=== PATIENT | female | born 1950 | race Caucasian/White ===

== ENCOUNTER → 2017-11-24 | Outpatient (CLI) | payer MEDICARE | END | disposition home or self-care (01) | LOC: RAH 09:03 | PROVIDERS: ATTEND Internal Medicine | DX: Z12.31 Encounter for screening mammogram for malignant neoplasm of breast (principal) | CPT/HCPCS: 77067 ==

== ENCOUNTER → 2017-12-16 | Outpatient (CLI) | payer MEDICARE | END | disposition home or self-care (01) | LOC: RAH 12:43 | PROVIDERS: ATTEND Internal Medicine | DX: R59.1 Generalized enlarged lymph nodes (principal) | CPT/HCPCS: 76882 ==

== ENCOUNTER → 2017-12-20 | Outpatient (CLI) | payer MEDICARE ==
[~2017-12-20] MED LIST: ROPIVACAINE 0.5% 5MG/ML 30ML IJ ONE
== END | disposition home or self-care (01) ==
LOC: RAH 08:29
PROVIDERS: ATTEND Internal Medicine
DX: R59.1 Generalized enlarged lymph nodes (principal)
CPT/HCPCS: 71046

== ENCOUNTER → 2017-12-27 | Outpatient (CLI) | payer MEDICARE ==
[~2017-12-27] MED LIST changes: +IOPAMIDOL-370 100 ML VIAL IV ONE; -ROPIVACAINE 0.5% 5MG/ML 30ML IJ ONE
== END | disposition home or self-care (01) ==
LOC: RAH 12:50
PROVIDERS: ATTEND Internal Medicine
DX: M50.323 Other cervical disc degeneration at C6-C7 level (principal)
CPT/HCPCS: 70491; 71260; Q9967

== ENCOUNTER → 2021-03-14 | Outpatient (CLI) | payer OTHER | END | disposition home or self-care (01) | LOC: RAH 08:04 | PROVIDERS: ATTEND Internal Medicine | DX: Z12.31 Encounter for screening mammogram for malignant neoplasm of breast (principal); Z00.01 Encounter for general adult medical examination with abnormal findings | CPT/HCPCS: 77067 ==

== ENCOUNTER → 2022-11-19 | Outpatient (CLI) | payer OTHER | END | disposition home or self-care (01) | LOC: RAH 15:02 | PROVIDERS: ATTEND Internal Medicine | DX: Z12.31 Encounter for screening mammogram for malignant neoplasm of breast (principal) | CPT/HCPCS: 77067 ==

== ENCOUNTER → 2023-09-15 | Outpatient (CLI) | payer OTHER | END | disposition home or self-care (01) | LOC: RAH 15:02 | PROVIDERS: ATTEND Internal Medicine | DX: M25.512 Pain in left shoulder (principal) | CPT/HCPCS: 73030 ==

== ENCOUNTER → 2023-12-13 | Outpatient (CLI) | payer OTHER | END | disposition home or self-care (01) | LOC: RAH 12:54 | PROVIDERS: ATTEND Nurse Practitioner | DX: M75.122 Complete rotator cuff tear or rupture of left shoulder, not specified as traumatic (principal); M19.012 Primary osteoarthritis, left shoulder | CPT/HCPCS: 73221 ==

== ENCOUNTER → 2024-10-23 | Outpatient (CLI) | payer OTHER ==
--- NOTE | 2024-10-23 15:03 | HMCIMG ---
US ARTERIAL UNILA LOW EXT DUPL HISTORY: Disorder of arteries COMPARISON: None TECHNIQUE: Left lower extremity arterial Doppler ultrasound study was performed. FINDINGS: Abnormal monophasic arterial waveforms are seen in the left posterior tibial and anterior tibial arteries. No flow is seen in the left dorsalis pedal artery. Normal triphasic arterial waveforms are noted in the left common femoral, deep femoral, superficial femoral, and popliteal arteries. On the left, the peak systolic velocity of the common femoral artery is 124 cm/s, the proximal femoral artery is 82 cm/s, the mid femoral artery is 87 cm/s, the distal femoral artery is 133 cm/s, the proximal popliteal artery is 37 cm/s, the distal popliteal artery is 34 cm/s, the anterior tibial artery is 28 cm/s, the posterior tibial artery artery is 15 cm/s,and the dorsalis pedal artery is 0 cm/s. IMPRESSION: 1. Atherosclerotic disease. 2. Abnormal monophasic arterial waveforms are seen in the left posterior tibial and anterior tibial arteries.
== END | disposition home or self-care (01) ==
LOC: RAH 14:08
PROVIDERS: ATTEND Internal Medicine
DX: I70.202 Unspecified atherosclerosis of native arteries of extremities, left leg (principal); I77.89 Other specified disorders of arteries and arterioles
CPT/HCPCS: 93926

== ENCOUNTER → 2024-11-14 | Outpatient (CLI) | payer OTHER ==
[~2024-11-14] MED LIST changes: +ACET-2079 PO; +APIX5TAB PO; +CEPH500T PO; +CLOP-31 PO; +GABA-529 PO; +HYDR-4379 PO; -IOPAMIDOL-370 100 ML VIAL IV ONE
== END | disposition home or self-care (01) ==
LOC: WHH 08:00
PROVIDERS: ATTEND Family Medicine
DX: I73.9 Peripheral vascular disease, unspecified (principal); I74.3 Embolism and thrombosis of arteries of the lower extremities; M62.262 Nontraumatic ischemic infarction of muscle, left lower leg; L97.522 Non-pressure chronic ulcer of other part of left foot with fat layer exposed; S91.302A Unspecified open wound, left foot, initial encounter; G62.9 Polyneuropathy, unspecified; L03.116 Cellulitis of left lower limb; E87.1 Hypo-osmolality and hyponatremia; E46 Unspecified protein-calorie malnutrition; F17.210 Nicotine dependence, cigarettes, uncomplicated; Z79.01 Long term (current) use of anticoagulants; Z68.21 Body mass index [BMI] 21.0-21.9, adult; Z79.899 Other long term (current) drug therapy; X58.XXXA Exposure to other specified factors, initial encounter; Y93.89 Activity, other specified; Y92.89 Other specified places as the place of occurrence of the external cause; Y99.8 Other external cause status
CPT/HCPCS: G0277

== ENCOUNTER → 2024-11-15 | Outpatient (CLI) | payer OTHER | END | disposition home or self-care (01) | LOC: WHH 08:08 | PROVIDERS: ATTEND Podiatrist Foot & Ankle Surgery | DX: I70.245 Atherosclerosis of native arteries of left leg with ulceration of other part of foot (principal); I74.3 Embolism and thrombosis of arteries of the lower extremities; L97.522 Non-pressure chronic ulcer of other part of left foot with fat layer exposed; M62.262 Nontraumatic ischemic infarction of muscle, left lower leg; S91.302D Unspecified open wound, left foot, subsequent encounter; I96 Gangrene, not elsewhere classified; E87.1 Hypo-osmolality and hyponatremia; I10 Essential (primary) hypertension; G62.9 Polyneuropathy, unspecified; F17.210 Nicotine dependence, cigarettes, uncomplicated; Z79.01 Long term (current) use of anticoagulants; Z79.899 Other long term (current) drug therapy; Z86.011 Personal history of benign neoplasm of the brain; Z79.02 Long term (current) use of antithrombotics/antiplatelets; X58.XXXD Exposure to other specified factors, subsequent encounter | CPT/HCPCS: G0277 ==

== ENCOUNTER → 2024-11-16 | Outpatient (CLI) | payer OTHER | END | disposition home or self-care (01) | LOC: WHH 07:39 | PROVIDERS: ATTEND Family Medicine | DX: I70.245 Atherosclerosis of native arteries of left leg with ulceration of other part of foot (principal); I74.3 Embolism and thrombosis of arteries of the lower extremities; L97.522 Non-pressure chronic ulcer of other part of left foot with fat layer exposed; M62.262 Nontraumatic ischemic infarction of muscle, left lower leg; S91.302D Unspecified open wound, left foot, subsequent encounter; I96 Gangrene, not elsewhere classified; E87.1 Hypo-osmolality and hyponatremia; I10 Essential (primary) hypertension; G62.9 Polyneuropathy, unspecified; F17.210 Nicotine dependence, cigarettes, uncomplicated; Z79.01 Long term (current) use of anticoagulants; Z79.899 Other long term (current) drug therapy; Z86.011 Personal history of benign neoplasm of the brain; Z79.02 Long term (current) use of antithrombotics/antiplatelets; X58.XXXD Exposure to other specified factors, subsequent encounter | CPT/HCPCS: G0277 ==

== ENCOUNTER → 2024-11-17 | Outpatient (CLI) | payer OTHER | END | disposition home or self-care (01) | LOC: WHH 08:01 | PROVIDERS: ATTEND Family Medicine | DX: I70.245 Atherosclerosis of native arteries of left leg with ulceration of other part of foot (principal); L97.522 Non-pressure chronic ulcer of other part of left foot with fat layer exposed; I74.3 Embolism and thrombosis of arteries of the lower extremities; M62.262 Nontraumatic ischemic infarction of muscle, left lower leg; S91.302D Unspecified open wound, left foot, subsequent encounter; I96 Gangrene, not elsewhere classified; E87.1 Hypo-osmolality and hyponatremia; I10 Essential (primary) hypertension; G62.9 Polyneuropathy, unspecified; F17.210 Nicotine dependence, cigarettes, uncomplicated; Z68.21 Body mass index [BMI] 21.0-21.9, adult; Z86.011 Personal history of benign neoplasm of the brain; Z79.01 Long term (current) use of anticoagulants; Z79.899 Other long term (current) drug therapy; Z79.02 Long term (current) use of antithrombotics/antiplatelets; X58.XXXD Exposure to other specified factors, subsequent encounter | CPT/HCPCS: G0277 ==

== ENCOUNTER → 2024-11-20 | Outpatient (CLI) | payer OTHER | END | disposition home or self-care (01) | LOC: WHH 07:55 | PROVIDERS: ATTEND Family Medicine | DX: I70.245 Atherosclerosis of native arteries of left leg with ulceration of other part of foot (principal); L97.522 Non-pressure chronic ulcer of other part of left foot with fat layer exposed; I74.3 Embolism and thrombosis of arteries of the lower extremities; M62.262 Nontraumatic ischemic infarction of muscle, left lower leg; S91.302D Unspecified open wound, left foot, subsequent encounter; I96 Gangrene, not elsewhere classified; G62.9 Polyneuropathy, unspecified; E87.1 Hypo-osmolality and hyponatremia; F17.210 Nicotine dependence, cigarettes, uncomplicated; Z79.01 Long term (current) use of anticoagulants; Z79.899 Other long term (current) drug therapy; X58.XXXD Exposure to other specified factors, subsequent encounter | CPT/HCPCS: G0277 ==

== ENCOUNTER → 2024-11-21 | Outpatient (CLI) | payer OTHER | END | disposition home or self-care (01) | LOC: WHH 07:58 | PROVIDERS: ATTEND Family Medicine | DX: I70.245 Atherosclerosis of native arteries of left leg with ulceration of other part of foot (principal); L97.522 Non-pressure chronic ulcer of other part of left foot with fat layer exposed; M62.262 Nontraumatic ischemic infarction of muscle, left lower leg; S91.302D Unspecified open wound, left foot, subsequent encounter; I96 Gangrene, not elsewhere classified; I74.3 Embolism and thrombosis of arteries of the lower extremities; E87.1 Hypo-osmolality and hyponatremia; I10 Essential (primary) hypertension; G62.9 Polyneuropathy, unspecified; F17.210 Nicotine dependence, cigarettes, uncomplicated; Z79.01 Long term (current) use of anticoagulants; Z79.899 Other long term (current) drug therapy; Z86.011 Personal history of benign neoplasm of the brain; Z79.02 Long term (current) use of antithrombotics/antiplatelets; X58.XXXD Exposure to other specified factors, subsequent encounter | CPT/HCPCS: G0277 ==

== ENCOUNTER → 2024-11-22 | Outpatient (CLI) | payer OTHER | END | disposition home or self-care (01) | LOC: WHH 08:27 | PROVIDERS: ATTEND Podiatrist Foot & Ankle Surgery | DX: I73.9 Peripheral vascular disease, unspecified (principal); M62.262 Nontraumatic ischemic infarction of muscle, left lower leg; I74.3 Embolism and thrombosis of arteries of the lower extremities; S91.302D Unspecified open wound, left foot, subsequent encounter; L97.522 Non-pressure chronic ulcer of other part of left foot with fat layer exposed; E87.1 Hypo-osmolality and hyponatremia; I10 Essential (primary) hypertension; G62.9 Polyneuropathy, unspecified; E46 Unspecified protein-calorie malnutrition; F17.210 Nicotine dependence, cigarettes, uncomplicated; Z79.01 Long term (current) use of anticoagulants; Z68.21 Body mass index [BMI] 21.0-21.9, adult; Z79.899 Other long term (current) drug therapy; Z86.011 Personal history of benign neoplasm of the brain; Z79.02 Long term (current) use of antithrombotics/antiplatelets; X58.XXXD Exposure to other specified factors, subsequent encounter | CPT/HCPCS: G0277 ==

== ENCOUNTER → 2024-11-23 | Outpatient (CLI) | payer OTHER | END | disposition home or self-care (01) | LOC: WHH 08:05 | PROVIDERS: ATTEND Family Medicine | DX: I73.9 Peripheral vascular disease, unspecified (principal); I74.3 Embolism and thrombosis of arteries of the lower extremities; L97.522 Non-pressure chronic ulcer of other part of left foot with fat layer exposed; M62.262 Nontraumatic ischemic infarction of muscle, left lower leg; S91.302D Unspecified open wound, left foot, subsequent encounter; E87.1 Hypo-osmolality and hyponatremia; I10 Essential (primary) hypertension; G62.9 Polyneuropathy, unspecified; E46 Unspecified protein-calorie malnutrition; F17.210 Nicotine dependence, cigarettes, uncomplicated; Z79.01 Long term (current) use of anticoagulants; Z68.21 Body mass index [BMI] 21.0-21.9, adult; Z79.899 Other long term (current) drug therapy; Z86.011 Personal history of benign neoplasm of the brain; Z79.02 Long term (current) use of antithrombotics/antiplatelets; X58.XXXD Exposure to other specified factors, subsequent encounter | CPT/HCPCS: G0277 ==

== ENCOUNTER → 2024-11-24 | Outpatient (CLI) | payer OTHER | END | disposition home or self-care (01) | LOC: WHH 08:11 | PROVIDERS: ATTEND Family Medicine | DX: I70.245 Atherosclerosis of native arteries of left leg with ulceration of other part of foot (principal); L97.522 Non-pressure chronic ulcer of other part of left foot with fat layer exposed; M62.262 Nontraumatic ischemic infarction of muscle, left lower leg; S91.302D Unspecified open wound, left foot, subsequent encounter; I96 Gangrene, not elsewhere classified; I74.3 Embolism and thrombosis of arteries of the lower extremities; G62.9 Polyneuropathy, unspecified; E87.1 Hypo-osmolality and hyponatremia; F17.210 Nicotine dependence, cigarettes, uncomplicated; Z79.01 Long term (current) use of anticoagulants; Z79.899 Other long term (current) drug therapy; X58.XXXD Exposure to other specified factors, subsequent encounter | CPT/HCPCS: G0277 ==

== ENCOUNTER → 2024-11-27 | Outpatient (CLI) | payer OTHER | END | disposition home or self-care (01) | LOC: WHH 08:07 | PROVIDERS: ATTEND Family Medicine | DX: I70.245 Atherosclerosis of native arteries of left leg with ulceration of other part of foot (principal); L97.522 Non-pressure chronic ulcer of other part of left foot with fat layer exposed; M62.262 Nontraumatic ischemic infarction of muscle, left lower leg; S91.302D Unspecified open wound, left foot, subsequent encounter; I96 Gangrene, not elsewhere classified; E87.1 Hypo-osmolality and hyponatremia; I10 Essential (primary) hypertension; G62.9 Polyneuropathy, unspecified; F17.210 Nicotine dependence, cigarettes, uncomplicated; Z79.01 Long term (current) use of anticoagulants; Z79.899 Other long term (current) drug therapy; Z86.011 Personal history of benign neoplasm of the brain; Z79.02 Long term (current) use of antithrombotics/antiplatelets; X58.XXXD Exposure to other specified factors, subsequent encounter | CPT/HCPCS: G0277 ==

== ENCOUNTER → 2024-11-28 | Outpatient (CLI) | payer OTHER | END | disposition home or self-care (01) | LOC: WHH 07:56 | PROVIDERS: ATTEND Family Medicine | DX: I73.9 Peripheral vascular disease, unspecified (principal); I74.3 Embolism and thrombosis of arteries of the lower extremities; L97.522 Non-pressure chronic ulcer of other part of left foot with fat layer exposed; M62.262 Nontraumatic ischemic infarction of muscle, left lower leg; M62.272 Nontraumatic ischemic infarction of muscle, left ankle and foot; S91.302D Unspecified open wound, left foot, subsequent encounter; E87.1 Hypo-osmolality and hyponatremia; I10 Essential (primary) hypertension; G62.9 Polyneuropathy, unspecified; E46 Unspecified protein-calorie malnutrition; F17.210 Nicotine dependence, cigarettes, uncomplicated; Z79.01 Long term (current) use of anticoagulants; Z68.21 Body mass index [BMI] 21.0-21.9, adult; Z79.899 Other long term (current) drug therapy; Z86.011 Personal history of benign neoplasm of the brain; Z79.02 Long term (current) use of antithrombotics/antiplatelets; X58.XXXD Exposure to other specified factors, subsequent encounter | CPT/HCPCS: G0277 ==

== ENCOUNTER → 2024-12-20 | Outpatient (CLI) | payer OTHER ==
[~2024-12-20] MED LIST changes: -ACET-2079 PO; -CEPH500T PO; +LIDOCAINE HCL 4% LTA SOL 4 ML VIAL TP ONE
== END | disposition home or self-care (01) ==
LOC: WHH 08:25
PROVIDERS: ATTEND Podiatrist Foot & Ankle Surgery
DX: E11.621 Type 2 diabetes mellitus with foot ulcer (principal); I70.245 Atherosclerosis of native arteries of left leg with ulceration of other part of foot; L97.522 Non-pressure chronic ulcer of other part of left foot with fat layer exposed; M62.262 Nontraumatic ischemic infarction of muscle, left lower leg; S91.302D Unspecified open wound, left foot, subsequent encounter; I74.3 Embolism and thrombosis of arteries of the lower extremities; I48.91 Unspecified atrial fibrillation; I96 Gangrene, not elsewhere classified; G62.9 Polyneuropathy, unspecified; I10 Essential (primary) hypertension; E87.1 Hypo-osmolality and hyponatremia; F17.210 Nicotine dependence, cigarettes, uncomplicated; Z79.01 Long term (current) use of anticoagulants; Z79.899 Other long term (current) drug therapy; Z86.011 Personal history of benign neoplasm of the brain; Z79.02 Long term (current) use of antithrombotics/antiplatelets; X58.XXXD Exposure to other specified factors, subsequent encounter
CPT/HCPCS: 97597; 97598

== ENCOUNTER → 2024-12-27 | Outpatient (CLI) | payer OTHER ==
[~2024-12-27] MED LIST changes: -LIDOCAINE HCL 4% LTA SOL 4 ML VIAL TP ONE
== END | disposition home or self-care (01) ==
LOC: WHH 08:11
PROVIDERS: ATTEND Podiatrist Foot & Ankle Surgery
DX: I70.245 Atherosclerosis of native arteries of left leg with ulceration of other part of foot (principal); L97.522 Non-pressure chronic ulcer of other part of left foot with fat layer exposed; M62.262 Nontraumatic ischemic infarction of muscle, left lower leg; S91.302D Unspecified open wound, left foot, subsequent encounter; I48.91 Unspecified atrial fibrillation; I96 Gangrene, not elsewhere classified; G62.9 Polyneuropathy, unspecified; I10 Essential (primary) hypertension; I74.3 Embolism and thrombosis of arteries of the lower extremities; E87.1 Hypo-osmolality and hyponatremia; F17.210 Nicotine dependence, cigarettes, uncomplicated; Z79.01 Long term (current) use of anticoagulants; Z79.899 Other long term (current) drug therapy; Z86.011 Personal history of benign neoplasm of the brain; Z79.02 Long term (current) use of antithrombotics/antiplatelets; X58.XXXD Exposure to other specified factors, subsequent encounter
CPT/HCPCS: G0463

== ENCOUNTER → 2025-01-03 | Outpatient (CLI) | payer OTHER ==
[~2025-01-03] MED LIST changes: +LIDOCAINE HCL 4% LTA SOL 4 ML VIAL TP ONE
== END | disposition home or self-care (01) ==
LOC: WHH 09:01
PROVIDERS: ATTEND Podiatrist Foot & Ankle Surgery
DX: I70.245 Atherosclerosis of native arteries of left leg with ulceration of other part of foot (principal); L97.522 Non-pressure chronic ulcer of other part of left foot with fat layer exposed; M62.262 Nontraumatic ischemic infarction of muscle, left lower leg; S91.302D Unspecified open wound, left foot, subsequent encounter; I48.91 Unspecified atrial fibrillation; I96 Gangrene, not elsewhere classified; I10 Essential (primary) hypertension; G62.9 Polyneuropathy, unspecified; I74.3 Embolism and thrombosis of arteries of the lower extremities; E87.1 Hypo-osmolality and hyponatremia; F17.210 Nicotine dependence, cigarettes, uncomplicated; Z79.01 Long term (current) use of anticoagulants; Z79.899 Other long term (current) drug therapy; Z86.011 Personal history of benign neoplasm of the brain; Z79.02 Long term (current) use of antithrombotics/antiplatelets; X58.XXXD Exposure to other specified factors, subsequent encounter
CPT/HCPCS: 11042; 11045; A6010; A4450

== ENCOUNTER → 2025-01-10 | Outpatient (CLI) | payer OTHER | END | disposition home or self-care (01) | LOC: WHH 08:44 | PROVIDERS: ATTEND Podiatrist Foot & Ankle Surgery | DX: I70.245 Atherosclerosis of native arteries of left leg with ulceration of other part of foot (principal); L97.522 Non-pressure chronic ulcer of other part of left foot with fat layer exposed; M62.262 Nontraumatic ischemic infarction of muscle, left lower leg; S91.302D Unspecified open wound, left foot, subsequent encounter; I48.91 Unspecified atrial fibrillation; I96 Gangrene, not elsewhere classified; G62.9 Polyneuropathy, unspecified; I10 Essential (primary) hypertension; I74.3 Embolism and thrombosis of arteries of the lower extremities; E87.1 Hypo-osmolality and hyponatremia; F17.210 Nicotine dependence, cigarettes, uncomplicated; Z79.01 Long term (current) use of anticoagulants; Z79.899 Other long term (current) drug therapy; Z86.011 Personal history of benign neoplasm of the brain; Z79.02 Long term (current) use of antithrombotics/antiplatelets; X58.XXXD Exposure to other specified factors, subsequent encounter | CPT/HCPCS: G0463; A6010 ==

== ENCOUNTER → 2025-01-17 | Outpatient (CLI) | payer OTHER | END | disposition home or self-care (01) | LOC: WHH 08:52 | PROVIDERS: ATTEND Podiatrist Foot & Ankle Surgery | DX: I70.245 Atherosclerosis of native arteries of left leg with ulceration of other part of foot (principal); L97.523 Non-pressure chronic ulcer of other part of left foot with necrosis of muscle; S91.302D Unspecified open wound, left foot, subsequent encounter; I48.91 Unspecified atrial fibrillation; I96 Gangrene, not elsewhere classified; G62.9 Polyneuropathy, unspecified; I10 Essential (primary) hypertension; E87.1 Hypo-osmolality and hyponatremia; I74.3 Embolism and thrombosis of arteries of the lower extremities; M62.262 Nontraumatic ischemic infarction of muscle, left lower leg; F17.210 Nicotine dependence, cigarettes, uncomplicated; Z79.01 Long term (current) use of anticoagulants; Z79.899 Other long term (current) drug therapy; Z86.011 Personal history of benign neoplasm of the brain; Z79.02 Long term (current) use of antithrombotics/antiplatelets; X58.XXXD Exposure to other specified factors, subsequent encounter | CPT/HCPCS: 11042; 11045; A6010 ==

== ENCOUNTER → 2025-01-31 | Outpatient (CLI) | payer OTHER ==
[~2025-01-31] MED LIST changes: +FIDA200T PO; -HYDR-4379 PO; +ONDA-243 PO
== END | disposition home or self-care (01) ==
LOC: WHH 09:06
PROVIDERS: ATTEND Podiatrist Foot & Ankle Surgery
DX: I70.245 Atherosclerosis of native arteries of left leg with ulceration of other part of foot (principal); L97.523 Non-pressure chronic ulcer of other part of left foot with necrosis of muscle; S91.302D Unspecified open wound, left foot, subsequent encounter; I48.91 Unspecified atrial fibrillation; I96 Gangrene, not elsewhere classified; G62.9 Polyneuropathy, unspecified; I10 Essential (primary) hypertension; E87.1 Hypo-osmolality and hyponatremia; I74.3 Embolism and thrombosis of arteries of the lower extremities; M62.262 Nontraumatic ischemic infarction of muscle, left lower leg; F17.210 Nicotine dependence, cigarettes, uncomplicated; Z79.01 Long term (current) use of anticoagulants; Z79.899 Other long term (current) drug therapy; Z86.011 Personal history of benign neoplasm of the brain; Z79.02 Long term (current) use of antithrombotics/antiplatelets; X58.XXXD Exposure to other specified factors, subsequent encounter
CPT/HCPCS: 11042; 11045; A6010

== ENCOUNTER → 2025-02-07 | Outpatient (CLI) | payer OTHER | END | disposition home or self-care (01) | LOC: WHH 09:01 | PROVIDERS: ATTEND Podiatrist Foot & Ankle Surgery | DX: I70.245 Atherosclerosis of native arteries of left leg with ulceration of other part of foot (principal); L97.523 Non-pressure chronic ulcer of other part of left foot with necrosis of muscle; S91.302D Unspecified open wound, left foot, subsequent encounter; I48.91 Unspecified atrial fibrillation; I96 Gangrene, not elsewhere classified; G62.9 Polyneuropathy, unspecified; I10 Essential (primary) hypertension; E87.1 Hypo-osmolality and hyponatremia; I74.3 Embolism and thrombosis of arteries of the lower extremities; M62.262 Nontraumatic ischemic infarction of muscle, left lower leg; F17.210 Nicotine dependence, cigarettes, uncomplicated; Z79.01 Long term (current) use of anticoagulants; Z79.899 Other long term (current) drug therapy; Z86.011 Personal history of benign neoplasm of the brain; Z79.02 Long term (current) use of antithrombotics/antiplatelets; X58.XXXD Exposure to other specified factors, subsequent encounter | CPT/HCPCS: 11042; 11045; A4450 ==

== ENCOUNTER → 2025-02-12 | Outpatient (CLI) | payer OTHER ==
[~2025-02-12] MED LIST changes: -LIDOCAINE HCL 4% LTA SOL 4 ML VIAL TP ONE
== END | disposition home or self-care (01) ==
LOC: WHH 10:18
PROVIDERS: ATTEND Podiatrist Foot & Ankle Surgery
DX: I70.245 Atherosclerosis of native arteries of left leg with ulceration of other part of foot (principal); L97.522 Non-pressure chronic ulcer of other part of left foot with fat layer exposed; S91.302D Unspecified open wound, left foot, subsequent encounter; I74.3 Embolism and thrombosis of arteries of the lower extremities; I48.91 Unspecified atrial fibrillation; I96 Gangrene, not elsewhere classified; G62.9 Polyneuropathy, unspecified; I10 Essential (primary) hypertension; E87.1 Hypo-osmolality and hyponatremia; M62.262 Nontraumatic ischemic infarction of muscle, left lower leg; F17.210 Nicotine dependence, cigarettes, uncomplicated; Z79.01 Long term (current) use of anticoagulants; Z79.899 Other long term (current) drug therapy; Z86.011 Personal history of benign neoplasm of the brain; Z79.02 Long term (current) use of antithrombotics/antiplatelets; X58.XXXD Exposure to other specified factors, subsequent encounter
CPT/HCPCS: 87070; G0463

== ENCOUNTER → 2025-02-14 | Outpatient (CLI) | payer OTHER ==
[~2025-02-14] MED LIST changes: +LIDOCAINE HCL 4% LTA SOL 4 ML VIAL TP ONE
== END | disposition home or self-care (01) ==
LOC: WHH 08:55
PROVIDERS: ATTEND Podiatrist Foot & Ankle Surgery
DX: I70.245 Atherosclerosis of native arteries of left leg with ulceration of other part of foot (principal); L97.526 Non-pressure chronic ulcer of other part of left foot with bone involvement without evidence of necrosis; S91.302D Unspecified open wound, left foot, subsequent encounter; I48.91 Unspecified atrial fibrillation; I96 Gangrene, not elsewhere classified; G62.9 Polyneuropathy, unspecified; I10 Essential (primary) hypertension; E87.1 Hypo-osmolality and hyponatremia; I74.3 Embolism and thrombosis of arteries of the lower extremities; M62.262 Nontraumatic ischemic infarction of muscle, left lower leg; F17.210 Nicotine dependence, cigarettes, uncomplicated; Z79.01 Long term (current) use of anticoagulants; Z79.899 Other long term (current) drug therapy; Z86.011 Personal history of benign neoplasm of the brain; Z79.02 Long term (current) use of antithrombotics/antiplatelets; X58.XXXD Exposure to other specified factors, subsequent encounter
CPT/HCPCS: 11042; 11045

== ENCOUNTER → 2025-02-28 | Outpatient (CLI) | payer OTHER | END | disposition home or self-care (01) | LOC: WHH 09:01 | PROVIDERS: ATTEND Podiatrist Foot & Ankle Surgery | DX: I70.245 Atherosclerosis of native arteries of left leg with ulceration of other part of foot (principal); L97.526 Non-pressure chronic ulcer of other part of left foot with bone involvement without evidence of necrosis; S91.302D Unspecified open wound, left foot, subsequent encounter; I48.91 Unspecified atrial fibrillation; I96 Gangrene, not elsewhere classified; G62.9 Polyneuropathy, unspecified; I10 Essential (primary) hypertension; E87.1 Hypo-osmolality and hyponatremia; I74.3 Embolism and thrombosis of arteries of the lower extremities; M62.262 Nontraumatic ischemic infarction of muscle, left lower leg; F17.210 Nicotine dependence, cigarettes, uncomplicated; Z79.01 Long term (current) use of anticoagulants; Z79.899 Other long term (current) drug therapy; Z86.011 Personal history of benign neoplasm of the brain; Z79.02 Long term (current) use of antithrombotics/antiplatelets; X58.XXXD Exposure to other specified factors, subsequent encounter | CPT/HCPCS: 11042; 11045; A6022 ×2 ==

== ENCOUNTER → 2025-03-14 | Outpatient (CLI) | payer OTHER | END | disposition home or self-care (01) | LOC: WHH 08:56 | PROVIDERS: ATTEND Podiatrist Foot & Ankle Surgery | DX: I70.245 Atherosclerosis of native arteries of left leg with ulceration of other part of foot (principal); L97.526 Non-pressure chronic ulcer of other part of left foot with bone involvement without evidence of necrosis; S91.302D Unspecified open wound, left foot, subsequent encounter; I48.91 Unspecified atrial fibrillation; I96 Gangrene, not elsewhere classified; I10 Essential (primary) hypertension; G62.9 Polyneuropathy, unspecified; E87.1 Hypo-osmolality and hyponatremia; I74.3 Embolism and thrombosis of arteries of the lower extremities; M62.262 Nontraumatic ischemic infarction of muscle, left lower leg; F17.210 Nicotine dependence, cigarettes, uncomplicated; Z79.01 Long term (current) use of anticoagulants; Z79.899 Other long term (current) drug therapy; Z86.011 Personal history of benign neoplasm of the brain; Z79.02 Long term (current) use of antithrombotics/antiplatelets; X58.XXXD Exposure to other specified factors, subsequent encounter | CPT/HCPCS: 11042; 11045; A6022 ==

== ENCOUNTER → 2025-03-21 | Outpatient (CLI) | payer OTHER | END | disposition home or self-care (01) | LOC: WHH 08:57 | PROVIDERS: ATTEND Podiatrist Foot & Ankle Surgery | DX: I70.245 Atherosclerosis of native arteries of left leg with ulceration of other part of foot (principal); L97.522 Non-pressure chronic ulcer of other part of left foot with fat layer exposed; S91.302D Unspecified open wound, left foot, subsequent encounter; I48.91 Unspecified atrial fibrillation; I96 Gangrene, not elsewhere classified; I10 Essential (primary) hypertension; G62.9 Polyneuropathy, unspecified; E87.1 Hypo-osmolality and hyponatremia; I74.3 Embolism and thrombosis of arteries of the lower extremities; M62.262 Nontraumatic ischemic infarction of muscle, left lower leg; F17.210 Nicotine dependence, cigarettes, uncomplicated; Z79.01 Long term (current) use of anticoagulants; Z79.899 Other long term (current) drug therapy; Z86.011 Personal history of benign neoplasm of the brain; Z79.02 Long term (current) use of antithrombotics/antiplatelets; X58.XXXD Exposure to other specified factors, subsequent encounter | CPT/HCPCS: 11042; 11045; A6022 ==

== ENCOUNTER → 2025-03-28 | Outpatient (CLI) | payer OTHER | END | disposition home or self-care (01) | LOC: WHH 08:49 | PROVIDERS: ATTEND Podiatrist Foot & Ankle Surgery | DX: I70.245 Atherosclerosis of native arteries of left leg with ulceration of other part of foot (principal); L97.522 Non-pressure chronic ulcer of other part of left foot with fat layer exposed; S91.302D Unspecified open wound, left foot, subsequent encounter; I48.91 Unspecified atrial fibrillation; I96 Gangrene, not elsewhere classified; I10 Essential (primary) hypertension; G62.9 Polyneuropathy, unspecified; E87.1 Hypo-osmolality and hyponatremia; I74.3 Embolism and thrombosis of arteries of the lower extremities; M62.262 Nontraumatic ischemic infarction of muscle, left lower leg; F17.210 Nicotine dependence, cigarettes, uncomplicated; Z79.01 Long term (current) use of anticoagulants; Z79.899 Other long term (current) drug therapy; Z86.011 Personal history of benign neoplasm of the brain; Z79.02 Long term (current) use of antithrombotics/antiplatelets; X58.XXXD Exposure to other specified factors, subsequent encounter; Z89.422 Acquired absence of other left toe(s) | CPT/HCPCS: 11042; 11045; A6022 ==

== ENCOUNTER → 2025-04-04 | Outpatient (CLI) | payer OTHER ==
[~2025-04-04] MED LIST changes: -LIDOCAINE HCL 4% LTA SOL 4 ML VIAL TP ONE; +LIDOCAINE HCL 4% TOP SOL 50ML TP ONE
== END | disposition home or self-care (01) ==
LOC: WHH 08:56
PROVIDERS: ATTEND Podiatrist Foot & Ankle Surgery
DX: I70.245 Atherosclerosis of native arteries of left leg with ulceration of other part of foot (principal); L97.522 Non-pressure chronic ulcer of other part of left foot with fat layer exposed; S91.302D Unspecified open wound, left foot, subsequent encounter; I48.91 Unspecified atrial fibrillation; I96 Gangrene, not elsewhere classified; I10 Essential (primary) hypertension; G62.9 Polyneuropathy, unspecified; E87.1 Hypo-osmolality and hyponatremia; I74.3 Embolism and thrombosis of arteries of the lower extremities; M62.262 Nontraumatic ischemic infarction of muscle, left lower leg; F17.210 Nicotine dependence, cigarettes, uncomplicated; Z79.01 Long term (current) use of anticoagulants; Z79.899 Other long term (current) drug therapy; Z86.011 Personal history of benign neoplasm of the brain; Z79.02 Long term (current) use of antithrombotics/antiplatelets; Z89.422 Acquired absence of other left toe(s); X58.XXXD Exposure to other specified factors, subsequent encounter
CPT/HCPCS: 11042; 11045; A6022; A4450

== ENCOUNTER → 2025-04-18 | Outpatient (CLI) | payer OTHER ==
[~2025-04-18] MED LIST changes: +LIDOCAINE HCL 4% LTA SOL 4 ML VIAL TP ONE; -LIDOCAINE HCL 4% TOP SOL 50ML TP ONE
== END | disposition home or self-care (01) ==
LOC: WHH 08:02
PROVIDERS: ATTEND Podiatrist Foot & Ankle Surgery
DX: I70.245 Atherosclerosis of native arteries of left leg with ulceration of other part of foot (principal); L97.522 Non-pressure chronic ulcer of other part of left foot with fat layer exposed; S91.302D Unspecified open wound, left foot, subsequent encounter; I48.91 Unspecified atrial fibrillation; I96 Gangrene, not elsewhere classified; I10 Essential (primary) hypertension; G62.9 Polyneuropathy, unspecified; E87.1 Hypo-osmolality and hyponatremia; I74.3 Embolism and thrombosis of arteries of the lower extremities; M62.262 Nontraumatic ischemic infarction of muscle, left lower leg; F17.210 Nicotine dependence, cigarettes, uncomplicated; Z79.01 Long term (current) use of anticoagulants; Z79.899 Other long term (current) drug therapy; Z86.011 Personal history of benign neoplasm of the brain; Z79.02 Long term (current) use of antithrombotics/antiplatelets; Z89.422 Acquired absence of other left toe(s); X58.XXXD Exposure to other specified factors, subsequent encounter
CPT/HCPCS: G0463; A6022

== ENCOUNTER → 2025-04-25 | Outpatient (CLI) | payer OTHER | END | disposition home or self-care (01) | LOC: WHH 08:59 | PROVIDERS: ATTEND Podiatrist Foot & Ankle Surgery | DX: I70.245 Atherosclerosis of native arteries of left leg with ulceration of other part of foot (principal); L97.522 Non-pressure chronic ulcer of other part of left foot with fat layer exposed; S91.302D Unspecified open wound, left foot, subsequent encounter; I48.91 Unspecified atrial fibrillation; I96 Gangrene, not elsewhere classified; I10 Essential (primary) hypertension; G62.9 Polyneuropathy, unspecified; E87.1 Hypo-osmolality and hyponatremia; I74.3 Embolism and thrombosis of arteries of the lower extremities; M62.262 Nontraumatic ischemic infarction of muscle, left lower leg; F17.210 Nicotine dependence, cigarettes, uncomplicated; Z79.01 Long term (current) use of anticoagulants; Z79.899 Other long term (current) drug therapy; Z86.011 Personal history of benign neoplasm of the brain; Z79.02 Long term (current) use of antithrombotics/antiplatelets; Z89.422 Acquired absence of other left toe(s); X58.XXXD Exposure to other specified factors, subsequent encounter | CPT/HCPCS: 11042; A6022 ==

== ENCOUNTER → 2025-05-02 | Outpatient (CLI) | payer OTHER ==
[~2025-05-02] MED LIST changes: -LIDOCAINE HCL 4% LTA SOL 4 ML VIAL TP ONE
== END | disposition home or self-care (01) ==
LOC: WHH 08:05
PROVIDERS: ATTEND Podiatrist Foot & Ankle Surgery
DX: I70.245 Atherosclerosis of native arteries of left leg with ulceration of other part of foot (principal); L97.522 Non-pressure chronic ulcer of other part of left foot with fat layer exposed; S91.302D Unspecified open wound, left foot, subsequent encounter; I48.91 Unspecified atrial fibrillation; I96 Gangrene, not elsewhere classified; I10 Essential (primary) hypertension; G62.9 Polyneuropathy, unspecified; E87.1 Hypo-osmolality and hyponatremia; I74.3 Embolism and thrombosis of arteries of the lower extremities; M62.262 Nontraumatic ischemic infarction of muscle, left lower leg; M86.8X7 Other osteomyelitis, ankle and foot; F17.210 Nicotine dependence, cigarettes, uncomplicated; Z79.01 Long term (current) use of anticoagulants; Z79.899 Other long term (current) drug therapy; Z86.011 Personal history of benign neoplasm of the brain; Z79.02 Long term (current) use of antithrombotics/antiplatelets; Z89.422 Acquired absence of other left toe(s); X58.XXXD Exposure to other specified factors, subsequent encounter
CPT/HCPCS: G0463; A6022

== ENCOUNTER 2025-05-09 06:03 | Day surgery (SDC) | payer OTHER ==
--- NOTE | 2025-05-08 11:05 | EKG ---
[facility] Test Date: 2025-05-08 Test Time: 10:53:53 Pat Name: KALI GARZA Department: [facility] Room: Gender: F Shingler: [id number] : 1950 Requested By: CRISTOFER CELESTE Order Number: [id number] Reading MD: Naun Betancourt Measurements Intervals [place] Rate: 54 P: 37 NM: 158 QRS: 37 QRSD: 87 T: 83 QT: 464 QTc: 439 Interpretive Statements Sinus rhythm Probable left atrial enlargement Nonspecific T abnrm, anterolateral leads Compared to ECG 01/24/2025 08:32:48 No significant changes Electronically Signed On 05-08-2025 15:03:50 CDT by Naun Betancourt Please click the below link to view image of tracing.
[2025-05-08 11:17] LABS: IMMATURE GRANULOCYTE ABSOLUTE 0.02 K/uL (0-1); NUCLEATED RED BLOOD CELLS 0.0 % (0.0-0.19); PLATELET COUNT (AUTO) 148 K/uL (130-400); RED BLOOD CELL COUNT(AUTO) 4.18 MIL/uL (4.00-5.50); RED CELL DISTRIBUTION WIDTH 17.1 % (11.0-15.5); WHITE BLOOD COUNT (AUTO) 7.0 K/uL (4.8-10.8)
[2025-05-08 11:20] LABS: ASPARTATE AMINOTRANSFERASE 16.0 U/L (10-37); CREATININE 0.5 mg/dL (0.5-1.0); GLOMERULAR FILTR. RATE CALC 100.0 mL/min (>90); GLUCOSE,RANDOM 87.0 mg/dL (70-105); SODIUM SERUM 140.0 mmol/L (136-145); TOTAL PROTEIN, SERUM 6.9 g/dL (6.0-8.3); UREA NITROGEN, BLOOD 11.0 mg/dL (7-18)
[2025-05-08 11:33] LABS: INR 0.95 (0.85-1.15)
[2025-05-08 11:45] VITALS: BP 146/72; PULSE 64; RESP 17; TEMP 97.7
--- NOTE | 2025-05-08 11:52 | NUR ---
REPORT REPORTED EKG TO DR CHINCHILLA. OK TO PROCEED
--- NOTE | 2025-05-08 12:16 | HMCIMG ---
EXAM: CR left foot, 3 View. CLINICAL HISTORY: PREOP COMPARISON: None provided. October 31, 2024 FINDINGS: Bones are markedly osteopenic. Amputation of the fourth toe from the metatarsophalangeal joint. Medial subluxation of the fifth proximal phalanx relative to the metatarsal. There is likely a small nondisplaced intra-articular fracture at the lateral base of the fifth proximal phalanx. There is fifth toe soft tissue edema and subcutaneous emphysema noted at the base of the fifth toe that may reflect a soft tissue wound. Clinical correlation is advised. Suggestion of subtle periostitis along the lateral cortex of the distal fifth metatarsal that may reflect underlying osteomyelitis. There is suggestion of a wound at the tip of the great toe with the tip of the distal phalanx protruding beyond the margin of the skin. Clinical correlation is advised. IMPRESSION: 1. Likely small nondisplaced intra-articular fracture at the lateral base of the fifth proximal phalanx with medial subluxation. 2. Fifth toe soft tissue edema and subcutaneous emphysema, possibly reflecting soft tissue wound. 3. Possible osteomyelitis of the distal fifth metatarsal. 4. Great toe wound with protruding distal phalanx. /[place]
--- NOTE | 2025-05-08 15:02 | NUR ---
report dr boston informed of foot x ray, eliquis last dose on 05/07/25 0600, and if ok for pt to take vanco am of surgery. as per dr boston/sherry ok to proceed and to instruct pt to hold vancomycin am of surgery and to continue to hold blood thinners. pt notified and voiced understanding.
[~2025-05-09] VITALS: Ht 160 cm; Wt 51.6 kg
[2025-05-09] VITALS (10 sets, daily range): BP systolic 112–140; BP diastolic 59–78; PULSE 52–63; RESP 14–19; TEMP 96.5–97.6
[~2025-05-09 06:03] MED LIST changes: -CLOP-31 PO; -FIDA200T PO; -GABA-529 PO; +GABA300C PO; +HYDR-4060 PO; +IRON PO; +MELO-108 PO; -ONDA-243 PO; +TRAMADOL PO; +VANC125C19 PO
[2025-05-09] MEDS ORDERED: MIDAZOLAM HCL 1 MG/ML 2ML VIAL ONE (06:28)
[2025-05-09] MEDS: LACTATED RINGERS 1000ML 1,000 ML IV ONE (07:10)
[2025-05-09] MEDS: LIDOCAINE HCL 1% 20 ML VIAL ONE (07:10)
[2025-05-09] MEDS ORDERED: GLYCOPYRROLATE 0.2 MG/ML 5 ML VIAL ONE (07:42)
--- NOTE | 2025-05-09 08:22 | OP ---
Operative Note: DATE OF PROCEDURE: 05/09/25 SURGEON: CRISTOFER CELESTE DPM SOLID WASTE TECHNICIAN: Or tech ANESTHESIA: 1% xylocaine plain mixed 50 50 with bupivacaine .5% level of 20 cc of via an ankle block. Moderate sedation. ANESTHESIOLOGIST/GLOBAL MANAGER: Matt Landon CRNA PREOPERATIVE DIAGNOSIS: Osteomyelitis hallux left distal phalanx osteomyelitis of the 5th metatarsal and 4th metatarsal left foot POSTOPERATIVE DIAGNOSIS: Osteomyelitis of the hallux left distal phalanx osteomyelitis of the 5th metatarsal and 4th metatarsal left foot with bone necrosis of the 5th metatarsal head and hallux left distal phalanx SYNOPSIS: Patient well known to pr who underwent radical debridement of the left foot dorsal aspect and 4th toe amputation in the past secondary to ischemic necrosis underwent angioplasties intervention restoring the circulation to the foot at this time was brought to the OR table to remove remaining necrotic bone from the 5th metatarsal for metatarsal and hallux in an attempt to salvage the foot she is still presenting with a dorsal wound which will be continued with local wound care. PROCEDURE: Distal phalanx ostectomy of the hallux left. Fourth metatarsal ostectomy left. Fifth metatarsal ostectomy with ostectomy of the base of the proximal phalanx left 5th ESTIMATED BLOOD LOSS: 20 cc INDICATIONS: Osteomyelitis and bone necrosis as stated above DESCRIPTION OF PROCEDURE: Patient was brought into the operating room table placed in the supine position on the IV sedation local anesthesia was achieved via local infiltration of 1% xylocaine mixed with 0.5% bupivacaine. A total of 20 cc was given as an ankle block. To the left foot. At this time the left foot was prepped and draped in usual sterile fashion. Attention was directed towards the hallux on the left foot. Were distal phalanx necrosis and exposure was noted. At this time utilizing a Grace elevator the nail was removed and separation of the distal phalanx from the soft tissue attachment was done at this moment. By this mean exposing the distal phalanx and utilizing a bone quarter hemiphalangectomy was performed at this moment. The remaining bone on the base of the distal phalanx was removed utilizing a bone rongeur. Area was flushed utilizing copious amounts of saline solution. And wound edges were reapproximated utilizing 3-0 nylon on the simple fashion. At this time then attention was directed towards the 4th metatarsal. This bone was noted to be exposed to the air with necrosis of the metatarsal head. Separation of the bone with a Grace elevator was done at this time. This bone was already disarticulated from the joint after amputation of the 4th toe in the previous visit. At this time utilizing a sagittal saw the bone was resected from the proximal 1/3 of the metatarsal. Was removed from the surgical site bleeders were cauterized utilizing electrocautery. At this time then attention was directed towards the 5th metatarsal utilizing a Grace elevator the soft tissue attachment of the 5th metatarsal were released at this time. A mid shaft osteotomy was performed at this moment utilizing a sagittal saw and the distal half of the 1st metatarsal was removed from the surgical site. Remaining soft tissue attachments were removed utilizing sharp instrumentation. The base of the proximal phalanx was noted to be exposed and utilizing a sagittal saw ulcer this base was removed. Utilizing a sagittal saw. At this moment surgery form was applied for remaining bleeding coagulation. Prior to this the wound was flushed utilizing with copious amounts of saline solution. Dressing was applied lysing Adaptic 4x4s and Kerlix and Calvin bandage. Patient tolerated procedure and anesthesia well was sent to recovery room with vital signs stable and follow up at the [facility] on Wednesday for dressing change. Insertion were given to the patient to keep the dressing dry and intact keep the foot elevated minimal ambulation. CRISTOFER CELESTE DPM May 09, 2025 08:21
== END 2025-05-09 09:13 | disposition home or self-care (01) ==
LOC: DAH 06:03
PROVIDERS: ATTEND Podiatrist Foot & Ankle Surgery
DX: M86.8X7 Other osteomyelitis, ankle and foot (principal); S91.102A Unspecified open wound of left great toe without damage to nail, initial encounter; R94.31 Abnormal electrocardiogram [ECG] [EKG]; T79.7XXA Traumatic subcutaneous emphysema, initial encounter; R60.0 Localized edema; I11.9 Hypertensive heart disease without heart failure; D64.9 Anemia, unspecified; I48.91 Unspecified atrial fibrillation; I73.9 Peripheral vascular disease, unspecified; Z79.01 Long term (current) use of anticoagulants; Z98.890 Other specified postprocedural states; X58.XXXA Exposure to other specified factors, initial encounter; Y93.89 Activity, other specified; Y92.89 Other specified places as the place of occurrence of the external cause; Y99.8 Other external cause status
CPT/HCPCS: 28124; 28122 ×2; 80053; 85025; 85610; 85730; 36415; 73630; 93005; 88311; 88304; A4223 ×2; A6260; A4663; A4649 ×2; A4606; J7120; J3010 ×2; J2250; J2704 ×2; J2405; J3490; J0665; A4215; A4222; A4221; A4216

== ENCOUNTER → 2025-05-16 | Outpatient (CLI) | payer OTHER ==
[~2025-05-16] MED LIST changes: +LIDOCAINE HCL 4% LTA SOL 4 ML VIAL TP ONE
== END | disposition home or self-care (01) ==
LOC: WHH 08:55
PROVIDERS: ATTEND Podiatrist Foot & Ankle Surgery
DX: I70.245 Atherosclerosis of native arteries of left leg with ulceration of other part of foot (principal); L97.526 Non-pressure chronic ulcer of other part of left foot with bone involvement without evidence of necrosis; S91.302D Unspecified open wound, left foot, subsequent encounter; I96 Gangrene, not elsewhere classified; I74.3 Embolism and thrombosis of arteries of the lower extremities; I48.91 Unspecified atrial fibrillation; G62.9 Polyneuropathy, unspecified; E87.1 Hypo-osmolality and hyponatremia; M62.262 Nontraumatic ischemic infarction of muscle, left lower leg; M86.8X7 Other osteomyelitis, ankle and foot; I11.9 Hypertensive heart disease without heart failure; F17.210 Nicotine dependence, cigarettes, uncomplicated; Z79.01 Long term (current) use of anticoagulants; Z79.899 Other long term (current) drug therapy; Z86.011 Personal history of benign neoplasm of the brain; Z79.02 Long term (current) use of antithrombotics/antiplatelets; Z89.422 Acquired absence of other left toe(s); X58.XXXD Exposure to other specified factors, subsequent encounter
CPT/HCPCS: G0463; A6010; A4450

== ENCOUNTER → 2025-05-23 | Outpatient (CLI) | payer OTHER ==
[~2025-05-23] MED LIST changes: -LIDOCAINE HCL 4% LTA SOL 4 ML VIAL TP ONE
== END | disposition home or self-care (01) ==
LOC: WHH 08:57
PROVIDERS: ATTEND Podiatrist Foot & Ankle Surgery
DX: I70.245 Atherosclerosis of native arteries of left leg with ulceration of other part of foot (principal); L97.526 Non-pressure chronic ulcer of other part of left foot with bone involvement without evidence of necrosis; S91.302D Unspecified open wound, left foot, subsequent encounter; I96 Gangrene, not elsewhere classified; I74.3 Embolism and thrombosis of arteries of the lower extremities; I48.91 Unspecified atrial fibrillation; G62.9 Polyneuropathy, unspecified; I11.9 Hypertensive heart disease without heart failure; E87.1 Hypo-osmolality and hyponatremia; M62.262 Nontraumatic ischemic infarction of muscle, left lower leg; M86.8X7 Other osteomyelitis, ankle and foot; F17.210 Nicotine dependence, cigarettes, uncomplicated; Z79.01 Long term (current) use of anticoagulants; Z79.899 Other long term (current) drug therapy; Z86.011 Personal history of benign neoplasm of the brain; Z79.02 Long term (current) use of antithrombotics/antiplatelets; Z89.422 Acquired absence of other left toe(s); X58.XXXD Exposure to other specified factors, subsequent encounter
CPT/HCPCS: 10060; 87070; 87086; 87186; A6248; A6010; A6260

== ENCOUNTER → 2025-05-30 | Outpatient (CLI) | payer OTHER ==
[~2025-05-30] MED LIST changes: +LIDOCAINE HCL 4% LTA SOL 4 ML VIAL TP ONE
== END | disposition home or self-care (01) ==
LOC: WHH 08:59
PROVIDERS: ATTEND Podiatrist Foot & Ankle Surgery
DX: I70.245 Atherosclerosis of native arteries of left leg with ulceration of other part of foot (principal); L97.526 Non-pressure chronic ulcer of other part of left foot with bone involvement without evidence of necrosis; L02.612 Cutaneous abscess of left foot; S91.302D Unspecified open wound, left foot, subsequent encounter; I96 Gangrene, not elsewhere classified; I74.3 Embolism and thrombosis of arteries of the lower extremities; I48.91 Unspecified atrial fibrillation; G62.9 Polyneuropathy, unspecified; I11.9 Hypertensive heart disease without heart failure; E87.1 Hypo-osmolality and hyponatremia; M62.262 Nontraumatic ischemic infarction of muscle, left lower leg; M86.8X7 Other osteomyelitis, ankle and foot; F17.210 Nicotine dependence, cigarettes, uncomplicated; Z79.01 Long term (current) use of anticoagulants; Z79.899 Other long term (current) drug therapy; Z86.011 Personal history of benign neoplasm of the brain; Z79.02 Long term (current) use of antithrombotics/antiplatelets; Z89.422 Acquired absence of other left toe(s); X58.XXXD Exposure to other specified factors, subsequent encounter
CPT/HCPCS: G0463; A6010

== ENCOUNTER → 2025-06-06 | Outpatient (CLI) | payer OTHER ==
[~2025-06-06] MED LIST changes: -LIDOCAINE HCL 4% LTA SOL 4 ML VIAL TP ONE
== END | disposition home or self-care (01) ==
LOC: WHH 08:06
PROVIDERS: ATTEND Podiatrist Foot & Ankle Surgery
DX: I70.245 Atherosclerosis of native arteries of left leg with ulceration of other part of foot (principal); L97.526 Non-pressure chronic ulcer of other part of left foot with bone involvement without evidence of necrosis; L02.612 Cutaneous abscess of left foot; S91.302D Unspecified open wound, left foot, subsequent encounter; I96 Gangrene, not elsewhere classified; I74.3 Embolism and thrombosis of arteries of the lower extremities; I48.91 Unspecified atrial fibrillation; G62.9 Polyneuropathy, unspecified; I11.9 Hypertensive heart disease without heart failure; E87.1 Hypo-osmolality and hyponatremia; M62.262 Nontraumatic ischemic infarction of muscle, left lower leg; M86.8X7 Other osteomyelitis, ankle and foot; F17.210 Nicotine dependence, cigarettes, uncomplicated; Z79.01 Long term (current) use of anticoagulants; Z79.899 Other long term (current) drug therapy; Z86.011 Personal history of benign neoplasm of the brain; Z79.02 Long term (current) use of antithrombotics/antiplatelets; Z89.422 Acquired absence of other left toe(s); X58.XXXD Exposure to other specified factors, subsequent encounter
CPT/HCPCS: 11042; A6248; A6010; A4450

== ENCOUNTER → 2025-06-13 | Outpatient (CLI) | payer OTHER ==
[~2025-06-13] MED LIST changes: +LIDOCAINE HCL 4% LTA SOL 4 ML VIAL TP ONE
== END | disposition home or self-care (01) ==
LOC: WHH 08:06
PROVIDERS: ATTEND Podiatrist Foot & Ankle Surgery
DX: I70.245 Atherosclerosis of native arteries of left leg with ulceration of other part of foot (principal); L97.526 Non-pressure chronic ulcer of other part of left foot with bone involvement without evidence of necrosis; L02.612 Cutaneous abscess of left foot; S91.302D Unspecified open wound, left foot, subsequent encounter; I96 Gangrene, not elsewhere classified; I74.3 Embolism and thrombosis of arteries of the lower extremities; I48.91 Unspecified atrial fibrillation; G62.9 Polyneuropathy, unspecified; I11.9 Hypertensive heart disease without heart failure; E87.1 Hypo-osmolality and hyponatremia; M62.262 Nontraumatic ischemic infarction of muscle, left lower leg; M86.8X7 Other osteomyelitis, ankle and foot; Z79.01 Long term (current) use of anticoagulants; Z79.899 Other long term (current) drug therapy; Z86.011 Personal history of benign neoplasm of the brain; Z79.02 Long term (current) use of antithrombotics/antiplatelets; Z87.891 Personal history of nicotine dependence; Z89.422 Acquired absence of other left toe(s); X58.XXXD Exposure to other specified factors, subsequent encounter
CPT/HCPCS: G0463; A6010

== ENCOUNTER → 2025-06-20 | Outpatient (CLI) | payer OTHER | END | disposition home or self-care (01) | LOC: WHH 08:12 | PROVIDERS: ATTEND Podiatrist Foot & Ankle Surgery | DX: I70.245 Atherosclerosis of native arteries of left leg with ulceration of other part of foot (principal); L97.526 Non-pressure chronic ulcer of other part of left foot with bone involvement without evidence of necrosis; L02.612 Cutaneous abscess of left foot; S91.302D Unspecified open wound, left foot, subsequent encounter; I96 Gangrene, not elsewhere classified; I74.3 Embolism and thrombosis of arteries of the lower extremities; I48.91 Unspecified atrial fibrillation; G62.9 Polyneuropathy, unspecified; I11.9 Hypertensive heart disease without heart failure; E87.1 Hypo-osmolality and hyponatremia; M62.262 Nontraumatic ischemic infarction of muscle, left lower leg; M86.8X7 Other osteomyelitis, ankle and foot; Z79.01 Long term (current) use of anticoagulants; Z79.899 Other long term (current) drug therapy; Z86.011 Personal history of benign neoplasm of the brain; Z79.02 Long term (current) use of antithrombotics/antiplatelets; Z87.891 Personal history of nicotine dependence; Z89.422 Acquired absence of other left toe(s); X58.XXXD Exposure to other specified factors, subsequent encounter | CPT/HCPCS: G0463; A6010 ==

== ENCOUNTER → 2025-07-04 | Outpatient (CLI) | payer OTHER ==
[~2025-07-04] MED LIST changes: -LIDOCAINE HCL 4% LTA SOL 4 ML VIAL TP ONE
[2025-07-04 09:09] LABS: IMMATURE GRANULOCYTE ABSOLUTE 0.03 K/uL (0-1); NUCLEATED RED BLOOD CELLS 0.0 % (0.0-0.19); PLATELET COUNT (AUTO) 181 K/uL (130-400); RED BLOOD CELL COUNT(AUTO) 4.06 MIL/uL (4.00-5.50); RED CELL DISTRIBUTION WIDTH 14.3 % (11.0-15.5); WHITE BLOOD COUNT (AUTO) 7.9 K/uL (4.8-10.8)
[2025-07-04 09:32] LABS: ASPARTATE AMINOTRANSFERASE 16.0 U/L (10-37); CREATININE 0.6 mg/dL (0.5-1.0); GLOMERULAR FILTR. RATE CALC 95.0 mL/min (>90); GLUCOSE,RANDOM 86.0 mg/dL (70-105); SODIUM SERUM 134.0 mmol/L (136-145); TOTAL PROTEIN, SERUM 6.9 g/dL (6.0-8.3); UREA NITROGEN, BLOOD 14.0 mg/dL (7-18)
== END | disposition home or self-care (01) ==
LOC: WHH 08:08
PROVIDERS: ATTEND Podiatrist Foot & Ankle Surgery
DX: I70.245 Atherosclerosis of native arteries of left leg with ulceration of other part of foot (principal); L97.526 Non-pressure chronic ulcer of other part of left foot with bone involvement without evidence of necrosis; L02.612 Cutaneous abscess of left foot; S91.302D Unspecified open wound, left foot, subsequent encounter; I96 Gangrene, not elsewhere classified; I74.3 Embolism and thrombosis of arteries of the lower extremities; I48.91 Unspecified atrial fibrillation; I11.9 Hypertensive heart disease without heart failure; G62.9 Polyneuropathy, unspecified; E87.1 Hypo-osmolality and hyponatremia; M62.262 Nontraumatic ischemic infarction of muscle, left lower leg; M86.8X7 Other osteomyelitis, ankle and foot; Z79.01 Long term (current) use of anticoagulants; Z79.899 Other long term (current) drug therapy; Z86.011 Personal history of benign neoplasm of the brain; Z79.02 Long term (current) use of antithrombotics/antiplatelets; Z87.891 Personal history of nicotine dependence; Z89.422 Acquired absence of other left toe(s); X58.XXXD Exposure to other specified factors, subsequent encounter
CPT/HCPCS: 80053; 85025; 36415; G0463

== ENCOUNTER → 2025-07-11 | Outpatient (CLI) | payer OTHER ==
[~2025-07-11] MED LIST changes: +LIDOCAINE HCL 4% LTA SOL 4 ML VIAL TP ONE
== END | disposition home or self-care (01) ==
LOC: WHH 08:19
PROVIDERS: ATTEND Podiatrist Foot & Ankle Surgery
DX: I70.245 Atherosclerosis of native arteries of left leg with ulceration of other part of foot (principal); L97.526 Non-pressure chronic ulcer of other part of left foot with bone involvement without evidence of necrosis; L02.612 Cutaneous abscess of left foot; S91.302D Unspecified open wound, left foot, subsequent encounter; I96 Gangrene, not elsewhere classified; I74.3 Embolism and thrombosis of arteries of the lower extremities; I48.91 Unspecified atrial fibrillation; I11.9 Hypertensive heart disease without heart failure; G62.9 Polyneuropathy, unspecified; E87.1 Hypo-osmolality and hyponatremia; M62.262 Nontraumatic ischemic infarction of muscle, left lower leg; M86.8X7 Other osteomyelitis, ankle and foot; Z79.01 Long term (current) use of anticoagulants; Z79.899 Other long term (current) drug therapy; Z86.011 Personal history of benign neoplasm of the brain; Z79.02 Long term (current) use of antithrombotics/antiplatelets; Z87.891 Personal history of nicotine dependence; Z89.422 Acquired absence of other left toe(s); X58.XXXD Exposure to other specified factors, subsequent encounter
CPT/HCPCS: G0463

== ENCOUNTER → 2025-07-13 | Outpatient (CLI) | payer OTHER ==
[~2025-07-13] MED LIST changes: -LIDOCAINE HCL 4% LTA SOL 4 ML VIAL TP ONE
--- NOTE | 2025-07-25 16:09 | HMCIMG ---
CR LEFT FOOT, 3 VIEW Clinical Details: Patient presents with an unspecified open wound of the left foot. Comparison is made with the prior study dated May 08, 2025. Technique: Three-view conventional radiographs of the left foot were obtained. Findings: Bones: Comparison is made with the exam dated May 08, 2025. The shafts of the fourth and fifth metatarsals are amputated. The distal phalanx of the great toe demonstrates auto-amputation or bone resorption. The fourth/ fifth toes have been re-implanted at their original locations. No acute fracture or aggressive osseous lesion is identified. The significant osteopenia noted on the prior study remains, but specific comment on bone density is limited in this study. The previously noted small nondisplaced intra-articular fracture at the lateral base of the fifth proximal phalanx is no longer described. Joints: Joint spaces appear to be maintained and within normal limits. There is no evidence of dislocation. Medial subluxation of the fifth proximal phalanx relative to the metatarsal reported previously is not clearly detailed in the current study. Soft Tissues: There is contusion involving soft tissues of the ankle and foot region. The previously described soft tissue edema, subcutaneous emphysema at the base of the fifth toe, and possible wound at the great toe tip with protruding distal phalanx have evolved, consistent with post-surgical changes after amputation and re-implantation. No discrete collection or new soft tissue gas is identified. Impression: * Post-surgical changes with amputation of the shafts of the fourth and fifth metatarsals and auto-amputation or bone resorption of distal phalanx of the great toe. * Soft tissue contusion involving the ankle and foot region consistent with clinical history of open wound and intervention. * No acute osseous fracture or aggressive bone lesion identified. Comparison is made with the exam dated May 08, 2025. /[place]
== END | disposition home or self-care (01) ==
LOC: RAH 09:45
PROVIDERS: ATTEND Podiatrist Foot & Ankle Surgery
DX: S90.02XA Contusion of left ankle, initial encounter (principal); S90.32XA Contusion of left foot, initial encounter; S91.302A Unspecified open wound, left foot, initial encounter; M85.872 Other specified disorders of bone density and structure, left ankle and foot; Z98.890 Other specified postprocedural states; X58.XXXA Exposure to other specified factors, initial encounter; Y93.89 Activity, other specified; Y92.89 Other specified places as the place of occurrence of the external cause; Y99.8 Other external cause status
CPT/HCPCS: 73630

== ENCOUNTER → 2025-07-18 | Outpatient (CLI) | payer OTHER ==
[~2025-07-18] MED LIST changes: +LIDOCAINE HCL 4% LTA SOL 4 ML VIAL TP ONE
== END | disposition home or self-care (01) ==
LOC: WHH 08:06
PROVIDERS: ATTEND Podiatrist Foot & Ankle Surgery
DX: I70.245 Atherosclerosis of native arteries of left leg with ulceration of other part of foot (principal); L97.526 Non-pressure chronic ulcer of other part of left foot with bone involvement without evidence of necrosis; L02.612 Cutaneous abscess of left foot; S91.302D Unspecified open wound, left foot, subsequent encounter; I96 Gangrene, not elsewhere classified; I74.3 Embolism and thrombosis of arteries of the lower extremities; I48.91 Unspecified atrial fibrillation; I11.9 Hypertensive heart disease without heart failure; G62.9 Polyneuropathy, unspecified; E87.1 Hypo-osmolality and hyponatremia; M62.262 Nontraumatic ischemic infarction of muscle, left lower leg; M86.8X7 Other osteomyelitis, ankle and foot; Z79.01 Long term (current) use of anticoagulants; Z79.899 Other long term (current) drug therapy; Z86.011 Personal history of benign neoplasm of the brain; Z79.02 Long term (current) use of antithrombotics/antiplatelets; Z87.891 Personal history of nicotine dependence; Z89.422 Acquired absence of other left toe(s); X58.XXXD Exposure to other specified factors, subsequent encounter
CPT/HCPCS: G0463

== ENCOUNTER → 2025-07-25 | Outpatient (CLI) | payer OTHER ==
[~2025-07-25] MED LIST changes: -LIDOCAINE HCL 4% LTA SOL 4 ML VIAL TP ONE
== END | disposition home or self-care (01) ==
LOC: WHH 09:07
PROVIDERS: ATTEND Podiatrist Foot & Ankle Surgery
DX: I70.245 Atherosclerosis of native arteries of left leg with ulceration of other part of foot (principal); L97.526 Non-pressure chronic ulcer of other part of left foot with bone involvement without evidence of necrosis; L02.612 Cutaneous abscess of left foot; S91.302D Unspecified open wound, left foot, subsequent encounter; I96 Gangrene, not elsewhere classified; I74.3 Embolism and thrombosis of arteries of the lower extremities; I48.91 Unspecified atrial fibrillation; I11.9 Hypertensive heart disease without heart failure; G62.9 Polyneuropathy, unspecified; E87.1 Hypo-osmolality and hyponatremia; M62.262 Nontraumatic ischemic infarction of muscle, left lower leg; M86.8X7 Other osteomyelitis, ankle and foot; Z79.01 Long term (current) use of anticoagulants; Z79.899 Other long term (current) drug therapy; Z86.011 Personal history of benign neoplasm of the brain; Z79.02 Long term (current) use of antithrombotics/antiplatelets; Z87.891 Personal history of nicotine dependence; Z89.422 Acquired absence of other left toe(s); X58.XXXD Exposure to other specified factors, subsequent encounter
CPT/HCPCS: G0463; A6209; A6260

== ENCOUNTER → 2025-08-01 | Outpatient (CLI) | payer OTHER | END | disposition home or self-care (01) | LOC: WHH 08:02 | PROVIDERS: ATTEND Podiatrist Foot & Ankle Surgery | DX: I70.245 Atherosclerosis of native arteries of left leg with ulceration of other part of foot (principal); L97.526 Non-pressure chronic ulcer of other part of left foot with bone involvement without evidence of necrosis; L02.612 Cutaneous abscess of left foot; S91.302D Unspecified open wound, left foot, subsequent encounter; I96 Gangrene, not elsewhere classified; I74.3 Embolism and thrombosis of arteries of the lower extremities; I48.91 Unspecified atrial fibrillation; I11.9 Hypertensive heart disease without heart failure; G62.9 Polyneuropathy, unspecified; E87.1 Hypo-osmolality and hyponatremia; M62.262 Nontraumatic ischemic infarction of muscle, left lower leg; M86.8X7 Other osteomyelitis, ankle and foot; Z79.01 Long term (current) use of anticoagulants; Z79.899 Other long term (current) drug therapy; Z86.011 Personal history of benign neoplasm of the brain; Z79.02 Long term (current) use of antithrombotics/antiplatelets; Z87.891 Personal history of nicotine dependence; Z89.422 Acquired absence of other left toe(s); X58.XXXD Exposure to other specified factors, subsequent encounter | CPT/HCPCS: G0463 ==

== ENCOUNTER → 2025-08-15 | Outpatient (CLI) | payer OTHER | END | disposition home or self-care (01) | LOC: WHH 08:08 | PROVIDERS: ATTEND Podiatrist Foot & Ankle Surgery | DX: S91.302D Unspecified open wound, left foot, subsequent encounter (principal); I70.245 Atherosclerosis of native arteries of left leg with ulceration of other part of foot; L97.526 Non-pressure chronic ulcer of other part of left foot with bone involvement without evidence of necrosis; L02.612 Cutaneous abscess of left foot; I96 Gangrene, not elsewhere classified; I74.3 Embolism and thrombosis of arteries of the lower extremities; I48.91 Unspecified atrial fibrillation; I11.9 Hypertensive heart disease without heart failure; G62.9 Polyneuropathy, unspecified; E87.1 Hypo-osmolality and hyponatremia; M62.262 Nontraumatic ischemic infarction of muscle, left lower leg; M86.8X7 Other osteomyelitis, ankle and foot; Z79.01 Long term (current) use of anticoagulants; Z79.899 Other long term (current) drug therapy; Z86.011 Personal history of benign neoplasm of the brain; Z79.02 Long term (current) use of antithrombotics/antiplatelets; Z87.891 Personal history of nicotine dependence; Z89.422 Acquired absence of other left toe(s); X58.XXXD Exposure to other specified factors, subsequent encounter | CPT/HCPCS: G0463; A6209; A6260 ==

== ENCOUNTER → 2025-08-22 | Outpatient (CLI) | payer OTHER | END | disposition home or self-care (01) | LOC: WHH 09:11 | PROVIDERS: ATTEND Podiatrist Foot & Ankle Surgery | DX: S91.302D Unspecified open wound, left foot, subsequent encounter (principal); I70.245 Atherosclerosis of native arteries of left leg with ulceration of other part of foot; L97.526 Non-pressure chronic ulcer of other part of left foot with bone involvement without evidence of necrosis; L02.612 Cutaneous abscess of left foot; I96 Gangrene, not elsewhere classified; I74.3 Embolism and thrombosis of arteries of the lower extremities; I48.91 Unspecified atrial fibrillation; I11.9 Hypertensive heart disease without heart failure; G62.9 Polyneuropathy, unspecified; E87.1 Hypo-osmolality and hyponatremia; M62.262 Nontraumatic ischemic infarction of muscle, left lower leg; M86.8X7 Other osteomyelitis, ankle and foot; Z79.01 Long term (current) use of anticoagulants; Z79.899 Other long term (current) drug therapy; Z86.011 Personal history of benign neoplasm of the brain; Z79.02 Long term (current) use of antithrombotics/antiplatelets; Z87.891 Personal history of nicotine dependence; Z89.422 Acquired absence of other left toe(s); X58.XXXD Exposure to other specified factors, subsequent encounter | CPT/HCPCS: G0463; A6209 ==

== ENCOUNTER → 2025-09-05 | Outpatient (CLI) | payer OTHER | END | disposition home or self-care (01) | LOC: WHH 09:00 | PROVIDERS: ATTEND Podiatrist Foot & Ankle Surgery | DX: S91.302D Unspecified open wound, left foot, subsequent encounter (principal); I70.245 Atherosclerosis of native arteries of left leg with ulceration of other part of foot; L97.526 Non-pressure chronic ulcer of other part of left foot with bone involvement without evidence of necrosis; L02.612 Cutaneous abscess of left foot; I96 Gangrene, not elsewhere classified; I74.3 Embolism and thrombosis of arteries of the lower extremities; I48.91 Unspecified atrial fibrillation; I11.9 Hypertensive heart disease without heart failure; G62.9 Polyneuropathy, unspecified; E87.1 Hypo-osmolality and hyponatremia; M62.262 Nontraumatic ischemic infarction of muscle, left lower leg; M86.8X7 Other osteomyelitis, ankle and foot; Z79.01 Long term (current) use of anticoagulants; Z79.899 Other long term (current) drug therapy; Z86.011 Personal history of benign neoplasm of the brain; Z79.02 Long term (current) use of antithrombotics/antiplatelets; Z87.891 Personal history of nicotine dependence; Z89.422 Acquired absence of other left toe(s); X58.XXXD Exposure to other specified factors, subsequent encounter | CPT/HCPCS: G0463 ==

== ENCOUNTER → 2025-09-12 | Outpatient (CLI) | payer OTHER | END | disposition home or self-care (01) | LOC: WHH 08:17 | PROVIDERS: ATTEND Podiatrist Foot & Ankle Surgery | DX: T81.89XD Other complications of procedures, not elsewhere classified, subsequent encounter (principal); S91.302D Unspecified open wound, left foot, subsequent encounter; I70.245 Atherosclerosis of native arteries of left leg with ulceration of other part of foot; L97.526 Non-pressure chronic ulcer of other part of left foot with bone involvement without evidence of necrosis; L02.612 Cutaneous abscess of left foot; I96 Gangrene, not elsewhere classified; I74.3 Embolism and thrombosis of arteries of the lower extremities; I48.91 Unspecified atrial fibrillation; I11.9 Hypertensive heart disease without heart failure; G62.9 Polyneuropathy, unspecified; E87.1 Hypo-osmolality and hyponatremia; M62.262 Nontraumatic ischemic infarction of muscle, left lower leg; M86.8X7 Other osteomyelitis, ankle and foot; Z79.01 Long term (current) use of anticoagulants; Z79.899 Other long term (current) drug therapy; Z86.011 Personal history of benign neoplasm of the brain; Z79.02 Long term (current) use of antithrombotics/antiplatelets; Z87.891 Personal history of nicotine dependence; Z89.422 Acquired absence of other left toe(s); X58.XXXD Exposure to other specified factors, subsequent encounter; Y83.8 Other surgical procedures as the cause of abnormal reaction of the patient, or of later complication, without mention of misadventure at the time of the procedure | CPT/HCPCS: G0463 ==

== ENCOUNTER 2025-09-19 06:00 | Day surgery (SDC) | payer OTHER ==
[2025-09-18 12:32] LABS: IMMATURE GRANULOCYTE ABSOLUTE 0.02 K/uL (0-1); NUCLEATED RED BLOOD CELLS 0.0 % (0.0-0.19); PLATELET COUNT (AUTO) 139 K/uL (130-400); RED BLOOD CELL COUNT(AUTO) 4.18 MIL/uL (4.00-5.50); RED CELL DISTRIBUTION WIDTH 14.6 % (11.0-15.5); WHITE BLOOD COUNT (AUTO) 6.3 K/uL (4.8-10.8)
--- NOTE | 2025-09-18 12:33 | EKG ---
[facility] Test Date: 2025-09-18 Test Time: 12:23:49 Pat Name: KALI GARZA Department: [facility] Room: Gender: F Bilingual Sales Consultant: [id number] : 1950 Requested By: CRISTOFER CELESTE Order Number: [id number] Reading MD: Silver Grijalva Measurements Intervals [place] Rate: 61 P: 59 IA: 164 QRS: 44 QRSD: 85 T: 58 QT: 420 QTc: 422 Interpretive Statements Sinus rhythm Compared to ECG 05/08/2025 10:53:53 Myocardial infarct finding now present Electronically Signed On 09-18-2025 23:51:46 DEMENTIA PROGRAM DIRECTOR by Silver Grijalva Please click the below link to view image of tracing.
[2025-09-18 12:44] LABS: ASPARTATE AMINOTRANSFERASE 18.0 U/L (10-37); CREATININE 0.8 mg/dL (0.5-1.0); GLOMERULAR FILTR. RATE CALC 78.0 mL/min (>90); GLUCOSE,RANDOM 97.0 mg/dL (70-105); SODIUM SERUM 137.0 mmol/L (136-145); TOTAL PROTEIN, SERUM 6.9 g/dL (6.0-8.3); UREA NITROGEN, BLOOD 24.0 mg/dL (7-18)
[2025-09-18 13:01] VITALS: BP 112/68; PULSE 72; RESP 18; TEMP 98.4
[~2025-09-19] VITALS: Ht 160 cm; Wt 53.0 kg
[2025-09-19] VITALS (16 sets, daily range): BP systolic 100–127; BP diastolic 54–78; PULSE 57–99; RESP 12–16; TEMP 97–97.8
[~2025-09-19 06:00] MED LIST changes: -IRON PO; -TRAMADOL PO; -VANC125C19 PO
[2025-09-19] MEDS ORDERED: MIDAZOLAM HCL 1 MG/ML 2ML VIAL ONE (06:36)
[2025-09-19] MEDS ORDERED: LIDOCAINE HCL 1% 10 ML VIAL ONE (06:50)
[2025-09-19] MEDS ORDERED: GLYCOPYRROLATE 0.2 MG/ML 5 ML VIAL ONE (07:12)
[2025-09-19] MEDS ORDERED: SUCCINYLCHOLINE CHLORIDE 20 MG/ML 10 ML VIAL ONE (07:17)
[2025-09-19] MEDS: BACITRACIN 28.4 GM OINT TP ONE (07:39)
[2025-09-19] MEDS: LACTATED RINGERS 1000ML 1,000 ML IV ONE (07:55)
[2025-09-19] MEDS: VANCOMYCIN 1G/250ML KIT 250 ML IV ONE (07:55)
[2025-09-19] MEDS ORDERED: PROMETHAZINE HCL 25 MG/ML 1ML AMPULE IM PRN (08:00)
[2025-09-19] MEDS ORDERED: MELO-108 PO (08:51)
[2025-09-19] MEDS ORDERED: SULF1TAB42 PO (08:52)
[2025-09-19] MEDS ORDERED: ACET-2743 PO (08:57)
--- NOTE | 2025-09-19 09:16 | NUR ---
Full and complete discharge instructions given to Patient and Family both verbally and in writing. Patient remains neurovascularly intact. Tolerated fluids and voided in bathroom. PIV removed with catheter tip intact. W/C to POV with Family to home.
--- NOTE | 2025-09-19 10:52 | OP ---
DATE OF PROCEDURE: 09/19/2025 PREOPERATIVE DIAGNOSIS: Osteomyelitis of the third metatarsal head and fourth metatarsal shaft. POSTOPERATIVE DIAGNOSIS: Osteomyelitis of the third metatarsal head and fourth metatarsal shaft. SURGICAL PROCEDURE: Metatarsectomy or metatarsal resection, 3rd metatarsal, left, and metatarsectomy or metatarsal resection of the 4th metatarsal, left. SURGEON: William Haywood DPM ANESTHESIA: General. ANESTHESIOLOGIST: Wilson Cardoso CRNA COMPLICATIONS: None. INJECTABLES: A 1% Xylocaine and 0.25% Marcaine plain given as an ankle block of the left foot. HEMOSTASIS: Utilizing electrocautery and QuikClot for the 4th metatarsal area. COMPLICATIONS: None. 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 She underwent extensive debridement and local wound care. Resulting from this ischemic process after angioplasties were done was osteomyelitis of the 3rd and 4th metatarsals secondary to bone exposure. At this time, the incision was made for removal of this metatarsal head on the 3rd and shaft of the 4th in an attempt to heal the wounds and prevent further complications. No guarantees were offered at this time. This is in an attempt to salvage the foot and prevent more proximal amputation. The patient understands the process at this moment and the procedure was followed. PROCEDURE IN DETAIL: The patient was brought into the operating room table and placed in the supine position. Attention was directed towards the 4th metatarsal area. A 4th metatarsal shaft was exposed at this time. Bone dissection was done utilizing a [place] elevator. Once the shaft was freed from soft tissue attachment, utilizing a sagittal saw, a transverse cut was performed on the more proximal metatarsal area, approximately 1/3 of the 4th metatarsal, by this means removing the bone and sent for pathological examination. Bleeders were cauterized and the need for QuikClot was utilized at this time for hemostasis. Once the bleeding was controlled, then attention was directed towards the 3rd metatarsal. Further sharp and blunt dissection was performed along the 3rd metatarsal shaft. Utilizing a sagittal saw after soft tissue was removed from the attachment to the metatarsal head, a transverse cut was performed along the distal 1/3 of the 3rd metatarsal. By this means removing the head of the 3rd metatarsal. Again, hemostasis was achieved utilizing electrocautery. The wound was flushed utilizing copious amount of saline solution and at this time, the wound was reapproximated with 3-0 nylon in a simple fashion. The dressing was applied using Neosporin, Adaptic, 4x4s, and Kerlix. The patient tolerated the procedure and anesthesia well and was sent to the recovery room with vital signs stable and then discharged home for continued wound care by home health and followup appointments at the [facility] for a followup postoperatively. The patient tolerated the procedure well. TID: [id number] RECEIPT: [id number]
== END 2025-09-19 09:18 | disposition home or self-care (01) ==
LOC: DAH 06:00
PROVIDERS: ATTEND Podiatrist Foot & Ankle Surgery
DX: M86.672 Other chronic osteomyelitis, left ankle and foot (principal); I96 Gangrene, not elsewhere classified; I48.91 Unspecified atrial fibrillation; Z86.2 Personal history of diseases of the blood and blood-forming organs and certain disorders involving the immune mechanism; Z98.890 Other specified postprocedural states
CPT/HCPCS: 80053; 85025; 36415; 93005; 28122 ×2; 88311; 88305; A6260; A4663; A4606; J7120; J3010; J0330; J2270; J0665; J3490 ×3; J2250; J2704; J2405; J3373; J2371; A4649; A4215; A4213; A4222; A4221; A4216; A4223 ×2